=== PATIENT | male | born 1965 | race Caucasian/White ===

== ENCOUNTER 2018-09-07 07:26 | Day surgery (SDC) | payer MEDICARE, OTHER ==
[~2018-09-07] VITALS: Ht 172.7 cm; Wt 72.1 kg
[~2018-09-07 07:26] MED LIST: ASPIR-LOW81 MG PO; LAMISIL AT12 GM TOP; LISINOPRIL10 MG PO; LOVASTATIN40 MG PO; MAPAP325 MG PO
--- NOTE | 2018-09-07 08:54 | NUR ---
09/07/18 0854 [address] Dee PATIENT O2 TITRATED TO ROOM AIR. PATIENT TALKING WITH NURSE.
--- NOTE | 2018-09-07 09:41 | OR ---
[facility] [address], [place] [address] Signed DATE OF OPERATION: 09/07/2018 SURGEON: Shahid Krause MD PREOPERATIVE DIAGNOSIS: Screening. POSTOPERATIVE DIAGNOSIS: [id number] internal hemorrhoids. PROCEDURE: Colonoscopy without biopsy. ESTIMATED BLOOD LOSS: None. INDICATIONS: Carmelo is a 53-year-old gentleman with developmental delay. He was asked to see me for consideration of a screening colonoscopy. Carmelo thinks he had a colonoscopy at a new hospital here in [facility]. If that was true, it would be only for 3 years old. However, we have not been able to track down that report. He tells me he has no lower GI complaints. There is no family history of colon cancer or polyps. In the office, I gave Carmelo and his caregiver a booklet on colonoscopy. We looked at that together along with the nature of the test. He understands there is risk including, but not limited to gas, bloating, crampy abdominal pain, bleeding, perforation, requiring surgery, and missed diagnosis. He also understands the need for IV conscious sedation. He had expressed understanding and wished to proceed. PROCEDURE NOTE: Carmelo was taken into our endoscopy suite and placed in the left lateral decubitus position. He was given 5 mg of Versed and 100 mcg of fentanyl to cover the case. A digital rectal exam was performed and his prostate is very unremarkable. It is not enlarged. It is not indurated and felt no dominant nodules. The adult colonoscope was introduced and advanced all around into the cecum under direct visualization of camera without difficulty. For his small body size, he has a fairly long colon. His prep was moderate. He had several areas of thick liquid particulate stool matter. We quickly clog the scope and one able to suction that out. We had withdrawn the scope slowly and otherwise found no evidence of any pathology in the colon or rectum. Upon retroflexion of scope, he has some minimal to moderate internal hemorrhoids. After this, the gas was suctioned out and the colonoscope removed. Carmelo tolerated the procedure quite well. Electronically Signed By: SHAHID KRAUSE MD 09/07/18 0941 PATIENT NAME: CARMELO BHATTI OPERATIVE REPORT DATE OF : 61 REPORT #: [id number] PHYSICIAN: SHAHID KRAUSE MD PCP: MYLA DELACRUZ MD REPORT IS CONFIDENTIAL AND NOT TO BE RELEASED WITHOUT AUTHORIZATION [address] [address] Signed RECOMMENDATIONS: Carmelo can follow up in 10 years for repeat colonoscopy. He should probably double his prep in the future for a better washout. MD RAMIRO Houser/ANAYA /[id number] cc: MD Shahid Wood MD Copies: SHAHID KRAUSE MD ~ Electronically Signed By: SHAHID KRAUSE MD 09/07/18 0941 PATIENT NAME: CARMELO BHATTI Foster OPERATIVE REPORT DATE OF : 61 REPORT #: [id number] PHYSICIAN: SHAHID KRAUSE MD PCP: MYLA DELACRUZ MD REPORT IS CONFIDENTIAL AND NOT TO BE RELEASED WITHOUT AUTHORIZATION
== END 2018-09-07 09:25 | disposition home or self-care (01) ==
LOC: DS 07:26 → OPS 07:26 → DS 08:15 → OPS 09:25
PROVIDERS: Colon & Rectal Surgery
PROC: 0DJD8ZZ Inspection of Lower Intestinal Tract, Via Natural or Artificial Opening Endoscopic (ICD-10-PCS; principal; 2018-09-07 08:15)
DX: Z12.11 Encounter for screening for malignant neoplasm of colon (principal); K64.8 Other hemorrhoids; I10 Essential (primary) hypertension; E78.5 Hyperlipidemia, unspecified; E11.9 Type 2 diabetes mellitus without complications; F17.210 Nicotine dependence, cigarettes, uncomplicated; Z79.82 Long term (current) use of aspirin; Z79.899 Other long term (current) drug therapy
CPT/HCPCS: 99153; G0500; J2250; J3010; J7120